=== PATIENT | female | born 1980 | race Caucasian/White ===

== ENCOUNTER 2016-09-03 15:54 | Inpatient (IN) | payer OTHER ==
--- NOTE | ~2016-09-03 | PN ---
Unit #: [id number] #: [id number] Patient: KATIA KRAMER [id number] [facility] [address] [place] [address] [id number] MR#: [id number] NAME: KATIA KRAMER. ROOM: P254 Age: 36 Sex: F Admission Date: 09/03/2016 : 1980 Attending Physician: Kala Boyer M.D. Admitting Physician: Kala Boyer M.D. Primary Care Physician: Primary Care Physician Bre HERRERA NOTES DATE September 10, 2016 DISCUSSION Ms. Kramer is a 36-year-old white female, who was seen today and chart was reviewed and the case was discussed with the staff. The patient has been anxious, withdrawn, and rather seclusive to herself. Meanwhile, she has been cooperative with the treatment recommendations and she has been taking the medications and tolerating them fairly well with no reported side effects. MENTAL STATUS EXAMINATION Young white female, who was casually dressed with fair personal hygiene and appears to be in no acute distress or discomfort. She was awake and alert on interaction with intact orientation. Her mood was anxious with a congruent affect. She denies any suicidal or homicidal ideations, and also denies any auditory or visual hallucinations. Her insight and judgment remain slightly impaired. TREATMENT PLAN 1. We will continue her on her current medications and treatment protocol, and will monitor her response to the medications, and make further adjustments as needed. 2. We will continue to followup. Dictated by... Harry Batista/josef TD: 09/11/2016 09:55 JOB #: [id number] Unit #: [id number] #: [id number] Patient: KATIA KRAMER [facility]ET PROGRESS NOTES X Kala Boyer MD PROGRESS NOTE
--- NOTE | ~2016-09-03 | PA ---
Unit #: [id number] #: [id number] Patient: KATIA KRAMER [id number] [facility] [address] [place] [address] [id number] I MR#: [id number] NAME: KATIA KRAMER ROOM: P254 Age: 36 Sex: F Admission Date: 09/03/2016 : 1980 Date of Assessment: 09/03/2016 Attending Physician: Kala Boyer M.D. Admitting Physician: Kala Boyer M.D. Primary Care Physician: Primary Care Physician No PSYCHIATRIC ASSESSMENT DATE OF SERVICE 09/03/2016. IDENTIFYING DATA Ms. Miller is a 36-year-old single white female, who is a resident of [place], [place] and is self-referred to the hospital accompanied by her boyfriend, Tavon Horta. CHIEF COMPLAINT "Extreme suicidal thoughts, I just want to ." HISTORY OF PRESENT ILLNESS Ms. Miller is a 36-year-old white female with a history of bipolar disorder, who was self-referred to the hospital. Upon presentation, reported increasing depression, feelings of hopelessness, suicidal thoughts, extreme mood swings and "I'm feeling so antisocial, my head feels extremely clouded and I don't know what is going on. I want to just run my car into a wall, that's all I think about it and I thought about it yesterday while I was driving and my boyfriend drove today, so that is why I'm here." The patient reports increased suicidal ideation that began about 3 months ago, and the patient reports she does not know why as she was unable to identify any triggers or stressors, and reports that she has just gotten worse and reports that she has been taking medications, but does not feel the medications are effectively controlling her bipolar or depression. 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 The patient reports she struggles paying her rent on time, but stated that she is not in housing jeopardy right now. SUBSTANCE ABUSE HISTORY The patient reports history of experimentation with cannabis, opioids, and amphetamines, but denies any current drug abuse with the exception of cannabis. PAST PSYCHIATRIC HISTORY The patient reports history of inpatient psychiatric hospitalization at [facility] at age of 18 and currently she is seeing a provider on an outpatient basis and reports that she has been diagnosed and treated for bipolar disorder and is currently on a combination of psychotropic medications. Unit #: [id number] #: [id number] Patient: KATIA KRAMER PAST MEDICAL HISTORY The patient's medical history is insignificant. ALLERGIES No known medication allergies. PERSONAL AND SOCIAL HISTORY A 36-year-old white female, who reports that she lives at home with her boyfriend and is unemployed and has children. She reports having fairly decent social support system. MENTAL STATUS EXAMINATION Young white female, who was casually dressed with fair personal hygiene, appears to be in no acute distress or discomfort. She was awake and alert on interaction with intact orientation to time, place, and person. Her mood was anxious and depressed with a congruent affect. Her speech was slow and goal directed. She reports having suicidal ideations, but denies any homicidal ideations, and also denies any auditory or visual hallucinations. Her insight and judgment remain significantly impaired. DIAGNOSTIC IMPRESSION Psychiatric: Bipolar disorder, most recent episode depressed, recurrent, moderate, without psychotic features. Medical: None. Stressors: Moderate psychosocial stressors. TREATMENT PLAN 1. The patient has presented with a history of mood disorder and has been decompensating and will need inpatient hospitalization for safety and stabilization. We will start her back on her home medications. We will adjust the medications and monitor response. 2. Supportive therapy was provided to the patient. 3. Safe, structured, and nourishing environment will be provided. ESTIMATED LENGTH OF STAY 4 to 5 days. ABILITY TO HELP SELF Limited. WILLINGNESS TO HELP SELF The patient appears to be willing to help self. STRENGTHS 1. Communicative. 2. Cooperative. PROBLEMS 1. Chronic dysphoric symptoms. 2. Poor social support system. DISCHARGE CRITERIA This will be contingent upon the patient's ability to show resolution of her depression and anxiety as well as her ability to stay safe to herself, particularly after discharge from the hospital. Dictated by... Unit #: [id number] #: [id number] Patient: NEEMA KRAMERY Miguel Harry Batista/rosanna TD: 09/05/2016 02:53 JOB #: [id number] PSYCHIATRIC ASSESSMENT X Kala Boyer MD PSYCHIATRIC ASSESSMENT
--- NOTE | ~2016-09-03 | HP ---
Unit #: [id number] #: [id number] Patient: SHANI KRAMER [id number] [place] [address] [id number] I MR#: [id number] NAME: SHANI KRAMER. ROOM: P254 Age: 36 Sex: F Admission Date: 09/03/2016 : 1980 Attending Physician: Kala Boyer M.D. Admitting Physician: Kala Boyer M.D. Primary Care Physician: Primary Care Physician No HISTORY AND PHYSICAL HISTORY OF PRESENT ILLNESS Shani is a 36 year old admitted to [address] [place] [address] with depression and verbalizing wanting to hurt herself. PAST MEDICAL HISTORY Nothing significant. PAST SURGICAL HISTORY Nothing reported. ALLERGIES No known drug allergies. SOCIAL HISTORY Smokes one pack per day. Denies alcohol. Admits to using marijuana on a daily basis and denies other illicit drug use. FAMILY HISTORY Medically noncontributory. REVIEW OF SYSTEMS CONSTITUTIONAL: No fever or chills. HEENT: Denies any sore throat, ear pain or runny nose. CARDIOVASCULAR: Denies chest pain, irregular heart rhythm or palpitations. CHEST: Denies shortness of breath or cough. No hemoptysis. GASTROINTESTINAL: Denies nausea, vomiting, diarrhea or chronic constipation. ENDOCRINE: Denies history of increased thirst or urination. No recent significant weight loss or gain. GENITOURINARY: Denies dysuria, frequency, or hematuria. SKIN: Denies any rashes. HEMATOLOGIC: Denies history of increased bleeding or bruising. MUSCULOSKELETAL: Denies any hot, swollen joints. No generalized muscle pain. NEUROLOGIC: Denies problems with vision or speech. No frequent, severe headaches. No numbness, tingling or weakness in any extremities. Denies loss of bladder or bowel control. CURRENT MEDICATIONS No orders received at the time of this dictation. PHYSICAL EXAMINATION Unit #: [id number] #: [id number] Patient: SHANI KRAMER GENERAL: Alert, well-nourished, in no apparent distress. VITAL SIGNS: Blood pressure 120/68, heart rate 80, respirations 16, temperature 99.1. WEIGHT: 200 pounds. HEIGHT: 5'4". SKIN: Warm and dry without rash or lesion. HEENT: Normocephalic. TMs not viewed. Oral and nasal passages clear. Conjunctivae clear. Pupils equal, round and reactive to light and accommodation. Extraocular movements intact. NECK: Supple without lymphadenopathy or thyromegaly. HEART: Regular rate and rhythm without murmur. LUNGS: Clear. ABDOMEN: Soft, nontender. : Not done. EXTREMITIES: No evidence of cyanosis, clubbing or edema. Moves all extremities without focal deficit. NEUROLOGICAL: Grossly within normal limits. Cranial Nerves: II: Visual ballard are intact. III, IV AND : Extraocular movements are intact. Pupils are equal, round and reactive to light. V: Facial sensation is grossly normal. VII: Facial movements and expression are normal. VIII: Auditory acuity grossly intact. IX, X: Uvula is midline. Phonation is normal. XI: Patient shrugs shoulders and turns head normally. XII: Tongue protrudes in the midline. Sensory and Motor Function: Sensory and motor sensation is grossly normal. Motor: moves all extremities well. Coordination: Gait is normal. Deep Tendon Reflexes: Intact. IMPRESSION Psychiatric admission. RECOMMENDATIONS PSYCHIATRIC: Per psychiatrist. MEDICAL: I see no contraindications to participating in facility's activities. MEDICAL PROGNOSIS Good. MEDICAL CONDITION Stable. Dictated by... Ifrah Zapata PBernardaABernarda-Jessy. for Harry Torres/david TD: 09/03/2016 23:55 JOB #: [id number] Unit #: [id number] #: [id number] Patient: SHANI KRAMER HISTORY AND PHYSICAL X Ifrah Zapata X HISTORY AND PHYSICAL
--- NOTE | ~2016-09-03 | PN ---
Unit #: [id number] #: [id number] Patient: KATIA KRAMER [id number] [facility] [address] [place] [address] [id number] I MR#: [id number] NAME: KATIA KRAMER ROOM: P254 Age: 36 Sex: F Admission Date: 09/03/2016 : 1980 Attending Physician: Kala Boyer M.D. Admitting Physician: Kala Boyer M.D. Primary Care Physician: Primary Care Physician Bre BUCKLEY PROGRESS NOTES DATE September 05, 2016 DISCUSSION Ms. Kramer is a 36-year-old white female, with bipolar disorder, who was seen today and chart was reviewed and the case was discussed with the staff. She has been anxious, withdrawn, depressed, and seclusive to herself with persistent mood swings, anxiety, and anger, and irritability. Meanwhile, she has been taking her medications and tolerating them fairly well. MENTAL STATUS EXAMINATION Young white female, who was casually dressed with fair personal hygiene and appears to be in no acute distress or discomfort. She was awake and alert on interaction with intact orientation. Her mood was anxious with a congruent affect. The patient denies any suicidal or homicidal ideations. Her insight and judgment remain slightly impaired. TREATMENT PLAN 1. We will continue her on her current treatment protocol, and will add p.r.n. Thorazine to help her with her anxiety. 2. We will continue to followup. Dictated by... Harry Batista/josef TD: 09/06/2016 12:49 JOB #: [id number] [facility] PROGRESS NOTES X Kala Boyer MD PROGRESS NOTE
--- NOTE | ~2016-09-03 | PN ---
Unit #: [id number] #: [id number] Patient: KATIA KRAMER [id number] [facility] [address] [place] [address] [id number] I MR#: [id number] NAME: KATIA KRAMER. ROOM: P254 Age: 36 Sex: F Admission Date: 09/03/2016 : 1980 Attending Physician: Kala Boyer M.D. Admitting Physician: Kala Boyer M.D. Primary Care Physician: Primary Care Physician Bre BUCKLEY PROGRESS NOTES DATE 09/08/2016 DISCUSSION Ms. Miller is a 36-year-old white female who was seen today and chart was reviewed and case was discussed with the staff. She has been anxious, withdrawn and rather seclusive to herself. Meanwhile, she has been cooperative with treatment recommendations as she has been taking the medications though has been complaining of persistent anxiety. MENTAL STATUS EXAMINATION Young white female who was casually dressed with fair personal hygiene appears to be in no acute distress or discomfort. She was awake and alert on interaction with intact orientation. Her mood was anxious with congruent affect. She denies any suicidal or homicidal ideations. Her insight and judgement remains slightly impaired. TREATMENT PLAN 1. We will continue her on her current medications and treatment protocol. We will monitor her response to the medication and make further adjustments as needed. 2. We will continue to follow up. Dictated by... Harry Batista/david TD: 09/10/2016 01:12 JOB #: [id number] Unit #: [id number] #: [id number] Patient: KATIA KRAMER [facility] PROGRESS NOTES X Kala Boyer MD X PROGRESS NOTE
--- NOTE | ~2016-09-03 | PN ---
Unit #: [id number] #: [id number] Patient: KATIA KRAMER [id number] [facility] [address] [place] [address] [id number] I MR#: [id number] NAME: KATIA KRAMER ROOM: P254 Age: 36 Sex: F Admission Date: 09/03/2016 : 1980 Attending Physician: Kala Boyer M.D. Admitting Physician: Kala Boyer M.D. Primary Care Physician: Primary Care Physician Bre HERRERA NOTES DATE September 06, 2016 DISCUSSION Ms. Kramer is a 36-year-old white female, who was seen today and chart was reviewed and the case was discussed with the staff. The patient has been anxious, withdrawn, and has been complaining of persistent depressive symptoms. Meanwhile, she has been taking the medications and tolerating them fairly well. MENTAL STATUS EXAMINATION Young white female, who was casually dressed with fair personal hygiene and appears to be in no acute distress or discomfort. She was awake and alert on interaction with intact orientation. Her mood was anxious with a congruent affect. She denies any suicidal or homicidal ideations. Her insight and judgment remain slightly impaired. TREATMENT PLAN 1. We will continue her on her current medications and treatment protocol, and will monitor her response, and make further adjustments as needed. 2. We will continue to followup. Dictated by... Harry Batista/josef TD: 09/07/2016 12:32 JOB #: [id number] [facility] PROGRESS NOTES X Kala Boyer MD PROGRESS NOTE
--- NOTE | ~2016-09-03 | PN ---
Unit #: [id number] #: [id number] Patient: KATIA KRAMER [id number] [facility] [address] [place] [address] [id number] I MR#: [id number] NAME: KATIA KRAMER ROOM: P254 Age: 36 Sex: F Admission Date: 09/03/2016 : 1980 Attending Physician: Kala Boyer M.D. Admitting Physician: Kala Boyer M.D. Primary Care Physician: Primary Care Physician Bre BUCKLEY PROGRESS NOTES DATE OF SERVICE: 09/18/2016 SUBJECTIVE Ms. Kramer is a 36-year-old white female who was seen today and chart was reviewed, and case was discussed with the staff. She has been anxious and was rather frustrated stating that she had a rough day yesterday and she apparently misplaced her car keys and all over the place looking for them and door of the whole house and then she was running late to the program, and then she has to ask someone to give a ride and she wanted to go to the meeting in the evening, but now she wants to be able to go there because she does not have transportation and was seen to be still having some poor frustration tolerance and increasing anxiety. MENTAL STATUS EXAMINATION Young white female who was casually dressed with fair personal hygiene, appears to be in no acute distress or discomfort. She was awake and alert on interaction with intact orientation. Her mood was anxious with a congruent affect. She denies any suicidal or homicidal ideations. Her insight and judgment remain slightly impaired. TREATMENT PLAN We will continue on her current treatment protocol. We will monitor her response and make further adjustments as needed. Dictated by... Harry Batista/rosanna TD: 09/19/2016 04:02 JOB #: [id number] Unit #: [id number] #: [id number] Patient: KATIA KRAMER [facility] PROGRESS NOTES Page 1 of 1 X Kala Boyer MD X PROGRESS NOTE
--- NOTE | ~2016-09-03 | PN ---
Unit #: [id number] #: [id number] Patient: KATIA KRAMER [id number] [facility] [address] [place] [address] [id number] MR#: [id number] NAME: KATIA KRAMER ROOM: P254 Age: 36 Sex: F Admission Date: 09/03/2016 : 1980 Attending Physician: Kala Boyer M.D. Admitting Physician: Kala Boyer M.D. Primary Care Physician: Primary Care Physician Bre HERRERA NOTES DATE OF SERVICE: 09/04/2016 SUBJECTIVE Ms. Kramer is a 36-year-old white female who was seen today and chart was reviewed, and case was discussed with the staff. She has been anxious, withdrawn, though has not shown any agitation or irritability, and has been cooperative with treatment recommendation as she has been taking the medications and tolerating them fairly well. MENTAL STATUS EXAMINATION Young white female who was casually dressed with fair personal hygiene, appears to be in no acute distress or discomfort. She was awake and alert on interaction with intact orientation. Her mood was anxious with a congruent affect. She reports having suicidal ideation, but denies any homicidal ideations. Her insight and judgment remain slightly impaired. TREATMENT PLAN 1. We will continue on her current medications and treatment protocol. We will monitor her response and make further adjustments as needed. 2. We will continue to follow up. Dictated by... Harry Batista/rosanna TD: 09/06/2016 07:27 JOB #: [id number] [facility] PROGRESS NOTES X Kala Boyer MD PROGRESS NOTE
--- NOTE | ~2016-09-03 | PN ---
Unit #: [id number] #: [id number] Patient: KATIA KRAMER [id number] [facility] [address] [place] [address] [id number] I MR#: [id number] NAME: KATIA KRAMER ROOM: P254 Age: 36 Sex: F Admission Date: 09/03/2016 : 1980 Attending Physician: Kala Boyer M.D. Admitting Physician: Kala Boyer M.D. Primary Care Physician: Primary Care Physician Bre BUCKLEY PROGRESS NOTES DATE OF SERVICE: 09/09/2016 SUBJECTIVE Ms. Kramer is a 36-year-old white female, who was seen today and chart was reviewed, and case was discussed with the staff. She has been anxious, withdrawn, and rather seclusive to herself. Meanwhile, she has been cooperative with the treatment recommendations and has been taking the medications and tolerating them fairly well with no reported side effects. MENTAL STATUS EXAMINATION Young white female, who was casually dressed with fair personal hygiene, appears to be in no acute distress or discomfort. She was awake and alert on interaction with intact orientation. Her mood was anxious with a congruent affect. She denies any suicidal or homicidal ideations. Her insight and judgment remain slightly impaired. TREATMENT PLAN 1. We will continue her on her current medications and treatment protocol. We will monitor her response to the medications and make further adjustments as needed. 2. We will continue to follow up. Dictated by... Harry Batista/rosanna TD: 09/10/2016 06:58 JOB #: [id number] [facility] PROGRESS NOTES X Kala Boyer MD PROGRESS NOTE
--- NOTE | ~2016-09-03 | DS ---
Unit #: [id number] #: [id number] Patient: KATIA KRAMER [id number] [facility] [place] [place] [address] [id number] MR#: [id number] NAME: KATIA KRAMER ROOM: P254 Age: 36 Sex: F Admission Date: 09/03/2016 : 1980 Discharge Date: 09/11/2016 Attending Physician: Kala Boyer M.D. Primary Care Physician: Primary Care Physician No DISCHARGE SUMMARY IDENTIFYING DATA Ms. Kramer is a 36-year-old single white female, who is a resident of [place], [place] and was self-referred to the hospital. DISCHARGE DIAGNOSES Psychiatric: Bipolar disorder, most recent episode depressed, recurrent, moderate, without psychotic features. Medical: None. Stressors: Moderate psychosocial stressors. HISTORY OF PRESENT ILLNESS Please see initial psychiatric evaluation for details. PAST PSYCHIATRIC HISTORY Please see initial psychiatric evaluation for details. PAST MEDICAL HISTORY Please see initial psychiatric evaluation for details. HOSPITAL COURSE The patient was admitted to the adult psychiatric unit at [facility] and was oriented to the hospital environment. Routine p.r.n. medications were initiated, and she was started back on her home medications and medications were adjusted. The patient was exhibiting some significant agitation, irritability, mood swings, and anxiety that was not responding to medications. [place] and Lamictal were initiated for bipolar and Seroquel was added; however, the patient was complaining of persistent anxiety despite being on Klonopin and as such, Thorazine had to be added, which she was able to do much better on. Later, Seroquel was gradually titrated as upward as well. She was taking the medications regularly and was tolerating them fairly well and was able to show a fairly decent therapeutic response with improvement in depression and anxiety and as such, it was decided that she will be discharged home will continue treatment on an outpatient basis. DISCHARGE MEDICATIONS Seroquel 50 mg in the morning and in the afternoon and 200 mg at bedtime for bipolar, Thorazine 50 mg as needed every 6 hours for anxiety, lithium 450 mg b.i.d. for bipolar, Lamictal 25 mg a day for bipolar, and Klonopin 0.5 mg every 8 hours for anxiety. DISCHARGE CONDITION Stable. Unit #: [id number] #: [id number] Patient: KATIA KRAMER. Dictated by... Harry Batista/rosanna TD: 09/12/2016 03:42 JOB #: [id number] DISCHARGE SUMMARY X Kala Boyer MD X DISCHARGE SUMMARY
--- NOTE | ~2016-09-03 | PN ---
Unit #: [id number] #: [id number] Patient: KATIA KRAMER [id number] [facility] [address] [place] [address] [id number] MR#: [id number] NAME: KATIA KRAMER ROOM: P254 Age: 36 Sex: F Admission Date: 09/03/2016 : 1980 Attending Physician: Kala Boyer M.D. Admitting Physician: Kala Boyer M.D. Primary Care Physician: Primary Care Physician Bre HERRERA NOTES DATE OF SERVICE: 09/07/2016 SUBJECTIVE Ms. Lennon is a 36-year-old white female, who was seen today and chart was reviewed and the case was discussed with the staff. She has been anxious and withdrawn, though has not shown any agitation or irritability and has been complaining of persistent depression, anxiety, anger, irritability, and mood swings. Meanwhile, she has been taking the medications and tolerating them fairly well. MENTAL STATUS EXAMINATION Young white female, who was casually dressed with fair personal hygiene and appears to be in no acute distress or discomfort. She was awake and alert on interaction with intact orientation. Her mood was anxious with a congruent affect. She denies any suicidal or homicidal ideations. Her insight and judgment remain slightly impaired. TREATMENT PLAN 1. We will continue her on her current medications and treatment protocol. We will monitor her response to the medications and make further adjustments as needed. 2. We will continue to follow up. Dictated by... Harry Batista/rosanna TD: 09/07/2016 16:24 JOB #: [id number] [facility] PROGRESS NOTES X Kala Boyer MD PROGRESS NOTE
[~2016-09-03 15:54] MED LIST: FLEXERIL PO; KETOPROFEN PO; LORTAB 5/500 TA1 TA1 PO; NO MEDICATIONS; PEN-VEE K PO; PHENERGAN PO; PHENERGAN25 MG PO; ULTRAM PO; VICODIN 5/1 TAB 5/50 PO; VICODIN 5/500 T1 TAB PO
[2016-09-04 09:37] LABS: URINE APPEARANCE CLEAR; URINE BILIRUBIN NEG (NEG); URINE BLOOD NEG (NEG); URINE COLOR YELLOW; URINE GLUCOSE NEG (NEG); URINE KETONE NEG (NEG); URINE LEUKOCYTE ESTERASE NEG (NEG); URINE NITRATE NEG (NEG); URINE PROTEIN NEG (NEG); URINE SPECIFIC GRAVITY 1.015 (1.003-1.035); URINE UROBILINOGEN 0.2 MG/DL (NEG)
[2016-09-04 09:44] LABS: BASOPHIL# 0.1 X10e3 (0-0.3); BASOPHIL% 0.5 % (0-2.5); EOSINOPHIL# 0.3 X10e3 (0-0.7); EOSINOPHIL% 3.1 % (0.0-7.0); HEMATOCRIT 43.1 % (35.0-45.0); HEMOGLOBIN 14.3 gm/dL (12.0-16.0); LYMPHOCYTE# 3.3 X10e3 (1.0-3.5); LYMPHOCYTE% 31.3 % (17.0-45.0); MEAN CELL VOLUME 101.1 FL (83-96); MEAN CORPUSCULAR HEMOGLOBIN 33.6 PG (28-34); MEAN CORPUSCULAR HGB CONC 33.2 g/dL (30-36); MEAN PLATELET VOLUME 8.5 FL (6.5-11.5); MONOCYTE# 0.6 X10e3 (0-1.0); MONOCYTE% 5.8 % (3.0-12.0); NEUTROPHIL# 6.2 X10e3 (1.5-7.1); NEUTROPHIL% 59.3 % (40-75); PLATELET COUNT 195 X10e3 (140-420); RED BLOOD COUNT 4.26 X10e (3.90-5.30); WHITE BLOOD COUNT 10.5 X10e3 (4.0-10.5)
[2016-09-04 09:47] LABS: DIFF IND NO
[2016-09-04 09:56] LABS: THYROID STIMULATING HORMONE 2.43 uIU/ml (0.34-5.60)
[2016-09-04 10:03] LABS: FREE THYROXIN (T4) 0.55 ng/dL (0.58-1.64)
[2016-09-04 10:19] LABS: ALBUMIN SERUM 4.1 g/dL (3.5-5.0); ALKALINE PHOSPHATASE 75 U/L (32-92); ALT (SGPT) 19 U/L (10-40); AST (SGOT) 14 U/L (10-42); BILIRUBIN,TOTAL 1.2 mg/dL (0.2-2.0); BLOOD UREA NITROGEN 12 mg/dL (9-23); BUN/CREATININE RATIO 13.33; CALCIUM SERUM 9.6 mg/dL (8.4-10.2); CARBON DIOXIDE 28 mmol/L (22-31); CHLORIDE 104 mmol/L (100-111); CREATININE SERUM 0.9 mg/dL (0.6-1.4); GLOM FILT RATE Estimated ABOVE60 mL/min (>60); GLUCOSE FASTING 94 mg/dL (70-110); POTASSIUM 4.9 mmol/L (3.5-5.1); PROTEIN TOTAL SERUM 6.6 g/dL (6.0-8.3); SODIUM 142 mmol/L (135-145)
[2016-09-04 11:10] LABS: AMPHETAMINE NEG (NEG); BARBITURATES NEG (NEG); BENZODIAZEPINES NEG (NEG); COCAINE NEG (NEG); MARIJUANA POS (NEG); OPIATES NEG (NEG); TRICYCLIC ANTIDEPRESSANTS NEG (NEG); U METHADONE NEG (NEG)
== END 2016-09-11 10:00 | disposition home or self-care (01) | DRG 885 ==
LOC: P2L 15:54 → POF 09-07 15:16 → P2L 09-07 15:26
PROVIDERS: Psychiatry & Neurology Psychiatry
DX: F33.1 Major depressive disorder, recurrent, moderate (principal); F41.9 Anxiety disorder, unspecified; F17.200 Nicotine dependence, unspecified, uncomplicated
CPT/HCPCS: 80053; 80178; 80307; 81003; 84439; 84443; 85025